=== PATIENT | female | born 1980 | race Caucasian/White ===

== ENCOUNTER 2018-04-20 14:16 | Emergency (ER) | payer MEDICARE, MEDICAID ==
[~2018-04-20] VITALS: Ht 170.2 cm; Wt 77.3 kg
[2018-04-20 14:33] VITALS: Ht 170.2 cm; Wt 77.3 kg
[2018-04-20] MEDS ORDERED: BUPROPION HCL75 MG PO (14:34)
[2018-04-20] MEDS ORDERED: RESTORIL7.5 MG PO (14:34)
[2018-04-20] MEDS ORDERED: CLEOCIN HCL300 MG PO (15:21)
[2018-04-20] MEDS ORDERED: NAPROSYN500 MG PO (15:21)
[2018-04-20 16:04] VITALS: BP 121/80
== END 2018-04-20 16:05 | disposition home or self-care (01) ==
LOC: D.ER 14:16
DX: K08.89 Other specified disorders of teeth and supporting structures (principal); S91.312A Laceration without foreign body, left foot, initial encounter; W26.8XXA Contact with other sharp object(s), not elsewhere classified, initial encounter; Y93.89 Activity, other specified; Y92.019 Unspecified place in single-family (private) house as the place of occurrence of the external cause; F17.200 Nicotine dependence, unspecified, uncomplicated